=== PATIENT | male | born 1930 | race Two or more races ===

== ENCOUNTER 2017-08-06 14:44 | Inpatient (IN) | payer MEDICAID ==
[~2017-08-06] VITALS: Ht 170.2 cm; Wt 63.5 kg
[2017-08-06] MEDS ORDERED: NS 250 ML IV ONE (15:22)
[2017-08-06] MEDS ORDERED: BETIMOL5 M2 OP (15:29)
[2017-08-06] MEDS ORDERED: LUMIGAN2.5 ML BOTH EYES (15:29)
[2017-08-06] MEDS ORDERED: METFORMIN HCL500 M5 PO (15:29)
[2017-08-06] MEDS ORDERED: LISINOPRIL30 MG ORAL (15:29)
[2017-08-06] MEDS ORDERED: AMLODIPINE BES2.5 MG ORAL (15:29)
[2017-08-06] MEDS ORDERED: ATORVASTATIN CA40 MG ORAL (15:29)
[2017-08-06 15:40] VITALS: BP 155/73
--- NOTE | 2017-08-06 15:56 | Emergency Room Report ---
History of Present Illness General Chief Complaint: Chest Pain Source: Family Member Present Illness HPI 86-year-old male presents ED complaining of chest pain. Daughter at bedside. States that chest pain started this morning around 6 AM at rest. Sharp, 6 out of 10, left-sided, nonradiating. Last for approximate 5 minutes then resolved. Patient had another episode of chest pain around 1 PM. Also complaining of shortness of breath. States that [place]. 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 Denies slurred speech or facial droop. Denies any arm or leg weakness. No other aggravating relieving factors. Denies any other associated symptoms Allergies: Coded Allergies: No Known Allergies (Unverified , 08/06/17) Patient History Past Medical History: DM, HTN, CVA/TIA Past Surgical History: none Pertinent Family History: none Social History: Denies: smoking, alcohol use, drug use Immunizations: UTD Reviewed Nursing Documentation: PMH: Agreed; PSxH: Agreed Nursing Documentation-PMH Hx Hypertension: Yes Hx Diabetes: Yes Hx Cerebrovascular Accident: Yes Review of Systems All Other Systems: negative except mentioned in HPI Physical Exam Vital Signs Date Time Temp Pulse Resp B/P (MAP) Pulse Ox O2 Delivery O2 Flow Rate FiO2 08/06/17 15:16 98.3 79 17 165/78 98 Room Air 98.2 Sp02 EP Interpretation: reviewed, normal General Appearance: no apparent distress, alert, GCS 15, non-toxic Head: normocephalic, atraumatic Eyes: bilateral eye normal inspection, bilateral eye PERRL ENT: hearing grossly normal, normal pharynx, no angioedema, normal voice Neck: full range of motion, supple/symm/no masses Respiratory: chest non-tender, lungs clear, normal breath sounds, speaking full sentences Cardiovascular #1: regular rate, rhythm, no edema Cardiovascular #2: 2+ carotid (R), 2+ carotid (L), 2+ radial (R), 2+ radial (L) , 2+ dorsalis pedis (R), 2+ dorsalis pedis (L) Gastrointestinal: normal bowel sounds, non tender, soft, non-distended, no guarding, no rebound Rectal: deferred Genitourinary: normal inspection, no CVA tenderness Musculoskeletal: back normal, gait/station normal, normal range of motion, non- tender Neurologic: alert, oriented x3, responsive, motor strength/tone normal, sensory intact, speech normal Psychiatric: judgement/insight normal, memory normal, mood/affect normal, no suicidal/homicidal ideation Reflexes: 3+ bicep (R), 3+ bicep (L), 3+ tricep (R), 3+ tricep (L), 3+ knee (R) , 3+ knee (L) Skin: normal color, no rash, warm/dry, well hydrated Lymphatic: no adenopathy Medical Decision Making Diagnostic Impression: Primary Impression: ACS (acute coronary syndrome) ER Course Hospital Course 86-year-old male presents ED complaining of chest pain Differential diagnoses include: MN/unstable angina, contusion, muscle strain, PTX, rib fracture Clinical course Patient placed on stretcher. on cardiac cath lab technologist. After initial history and physical I ordered labs, EKG, chest x-ray labs reviewed- no leukocytosis, hb/hct stable, electrolytes ok, trop negative EKG - NSR, no aucet ischemic changes interpreted by me Chest x-ray- no acute process given aspirin Case discussed with Dr. Brewer and he agreed to accept the patient to his service for further care and support I. I feel this is a highly complex case requiring extensive working including EKG/Rhythm strip, Xray/CT/US, Blood/urine lab work, repeat exams while in ED, and administration of strong opiates/narcotics for pain control, admission to hospital or close patient follow up. Diagnosis - ACS admitted to telemetry in serious condition Labs Test 08/06/17 15:32 White Blood Count 4.9 K/UL (4.8-10.8) Red Blood Count 3.85 M/UL (4.70-6.10) Hemoglobin 12.6 G/DL (14.2-18.0) Hematocrit 35.4 % (42.0-52.0) Mean Corpuscular Volume 92 FL (80-99) Mean Corpuscular Hemoglobin 32.6 PG (27.0-31.0) Mean Corpuscular Hemoglobin Concent 35.5 G/DL (32.0-36.0) Red Cell Distribution Width 11.5 % (11.6-14.8) Platelet Count 241 K/UL (150-450) Mean Platelet Volume 7.6 FL (6.5-10.1) Neutrophils (%) (Auto) 47.3 % (45.0-75.0) Lymphocytes (%) (Auto) 34.3 % (20.0-45.0) Monocytes (%) (Auto) 10.4 % (1.0-10.0) Eosinophils (%) (Auto) 6.7 % (0.0-3.0) Basophils (%) (Auto) 1.3 % (0.0-2.0) Sodium Level 138 MMOL/L (136-145) Potassium Level 4.4 MMOL/L (3.5-5.1) Chloride Level 103 MMOL/L (98-107) Carbon Dioxide Level 29 MMOL/L (21-32) Anion Gap 6 mmol/L (5-15) Blood Urea Nitrogen 13 mg/dL (7-18) Creatinine 0.9 MG/DL (0.55-1.30) Estimat Glomerular Filtration Rate mL/min (>60) Glucose Level 200 MG/DL (74-106) Calcium Level 9.2 MG/DL (8.5-10.1) Total Bilirubin 0.5 MG/DL (0.2-1.0) Aspartate Amino Transf (AST/SGOT) 17 U/L (15-37) Alanine Aminotransferase (ALT/SGPT) 24 U/L (12-78) Alkaline Phosphatase 78 U/L (46-116) Total Creatine Kinase 29 U/L (26-308) Creatine Kinase MB < 0.5 NG/ML (0.0-3.6) Creatine Kinase MB Relative Index 1.7 Troponin I 0.000 ng/mL (0.000-0.056) Pro-B-Type Natriuretic Peptide 76 pg/mL (0-125) Total Protein 7.2 G/DL (6.4-8.2) Albumin 3.8 G/DL (3.4-5.0) Globulin 3.4 g/dL Albumin/Globulin Ratio 1.1 (1.0-2.7) EKG Diagnostic Results Rate: normal Rhythm: NSR ST Segments: no acute changes ASA given to the pt in ED: Yes Rhythm Strip Diag. Results EP Interpretation: yes Rhythm: NSR, no PVC's, no ectopy Chest X-Ray Diagnostic Results Chest X-Ray Diagnostic Results : Chest X-Ray Ordered: Yes # of Views/Limited/Complete: 1 View Indication: Chest Pain EP Interpretation: Yes Interpretation: no pneumothorax, other - minimal effusion to RLL base Impression: No acute disease Electronically Signed by: Electronically signed by Miguel Johnson MD Last Vital Signs Date Time Temp Pulse Resp B/P (MAP) Pulse Ox O2 Delivery O2 Flow Rate FiO2 08/06/17 15:16 98.3 79 17 165/78 98 Room Air 98.2 Status: improved Disposition: ADMITTED INPATIENT Condition: Serious Miguel Johnson MD Aug 06, 2017 15:56
--- NOTE | 2017-08-06 15:56 | Diagnostic Imaging Report ---
Indication: Chest pain Comparison: None A single view chest radiograph was obtained. Findings: No definite infiltrate or pulmonary vascular congestion identified. Minimal left basilar atelectasis noted. The heart is enlarged. The aorta is mildly enlarged consistent with atherosclerotic vascular disease. The bones are osteopenic. Impression: No acute disease
[2017-08-06 16:06] LABS: BASOPHILS % (AUTO) 1.3 % (0.0-2.0); EOSINOPHILS % (AUTO) 6.7 % (0.0-3.0); HEMATOCRIT 35.4 % (42.0-52.0); HEMOGLOBIN 12.6 G/DL (14.2-18.0); LYMPHOCYTES % (AUTO) 34.3 % (20.0-45.0); MEAN CORPUSCULAR VOLUME 92 FL (80-99); MONOCYTES % (AUTO) 10.4 % (1.0-10.0); NEUTROPHILS % (AUTO) 47.3 % (45.0-75.0); PLATELET COUNT 241 K/UL (150-450); RED BLOOD COUNT 3.85 M/UL (4.70-6.10); RED CELL DISTRIBUTION WIDTH 11.5 % (11.6-14.8); WHITE BLOOD COUNT 4.9 K/UL (4.8-10.8)
[2017-08-06 16:17] LABS: ANION GAP 6 mmol/L (5-15); BLOOD UREA NITROGEN 13 mg/dL (7-18); CALCIUM 9.2 MG/DL (8.5-10.1); CARBON DIOXIDE 29 MMOL/L (21-32); CHLORIDE 103 MMOL/L (98-107); CREATININE 0.9 MG/DL (0.55-1.30); POTASSIUM 4.4 MMOL/L (3.5-5.1); SODIUM 138 MMOL/L (136-145)
[2017-08-06 16:31] LABS: ALANINE AMINOTRANSFERASE 24 U/L (12-78); ALBUMIN 3.8 G/DL (3.4-5.0); ALBUMIN/GLOBULIN RATIO 1.1 (1.0-2.7); ALKALINE PHOSPHATASE 78 U/L (46-116); ASPARTATE AMINO TRANSFERASE 17 U/L (15-37); BILIRUBIN,TOTAL 0.5 MG/DL (0.2-1.0); CKMB < 0.5 NG/ML (0.0-3.6); CREATINE KINASE 29 U/L (26-308)
[2017-08-06] MEDS ORDERED: Mylanta II UD 30ml ORAL PRN (16:45)
[2017-08-06] MEDS ORDERED: traMADol 50mg tab ORAL PRN (16:45)
[2017-08-06] MEDS ORDERED: Miralax 17gm pkt ORAL PRN (16:45)
[2017-08-06] MEDS ORDERED: Nitroglycerin Subl 0.4mg tab SL PRN (16:45)
[2017-08-06 17:00] VITALS: BP 147/77
[2017-08-06 18:20] VITALS: BP 153/80
[2017-08-06] MEDS ORDERED: Albuterol/Ipratropium 3ml neb HHN PRN (18:58)
[2017-08-06 20:00] VITALS: BP 168/78
[2017-08-06] MEDS: NovoLOG Insulin Flexpen SUBQ SCH ×2 (21:00→21:25)
[2017-08-06] MEDS: Heparin 5000 units/ml inj SUBQ SCH (21:00)
[2017-08-06] MEDS: Docusate 100mg cap ORAL SCH ×2 (21:00→21:22)
[2017-08-06] MEDS: Atorvastatin 20mg tab ORAL SCH (21:23)
[2017-08-06] MEDS: Latanoprost 0.005% Opth 2.5ml Soln BOTH EYES SCH (21:24)
[2017-08-06] MEDS: Timolol 0.5% Op Soln 2.5ml BOTH EYES SCH (21:24)
[2017-08-07] VITALS: BP 146/79
[2017-08-07 04:00] VITALS: BP 123/64
[2017-08-07 05:21] LABS: BASOPHILS % (AUTO) 1.2 % (0.0-2.0); EOSINOPHILS % (AUTO) 7.9 % (0.0-3.0); HEMATOCRIT 36.2 % (42.0-52.0); HEMOGLOBIN 12.8 G/DL (14.2-18.0); LYMPHOCYTES % (AUTO) 37.6 % (20.0-45.0); MEAN CORPUSCULAR VOLUME 91 FL (80-99); MONOCYTES % (AUTO) 9.4 % (1.0-10.0); PLATELET COUNT 260 K/UL (150-450); RED BLOOD COUNT 3.97 M/UL (4.70-6.10); RED CELL DISTRIBUTION WIDTH 11.3 % (11.6-14.8); WHITE BLOOD COUNT 5.2 K/UL (4.8-10.8)
[2017-08-07 05:27] LABS: ANION GAP 5 mmol/L (5-15); BLOOD UREA NITROGEN 9 mg/dL (7-18); CALCIUM 8.9 MG/DL (8.5-10.1); CARBON DIOXIDE 31 MMOL/L (21-32); CHLORIDE 105 MMOL/L (98-107); CHOLESTEROL 90 MG/DL (< 200); CREATININE 0.9 MG/DL (0.55-1.30); HDL CHOLESTEROL 46 MG/DL (40-60); POTASSIUM 3.7 MMOL/L (3.5-5.1); SODIUM 141 MMOL/L (136-145); TRIGLYCERIDES 32 MG/DL (30-150)
[2017-08-07] MEDS: NovoLOG Insulin Flexpen SUBQ SCH ×4 (06:30→20:32)
[2017-08-07 08:00] VITALS: BP 135/68
[2017-08-07] MEDS: Heparin 5000 units/ml inj SUBQ SCH ×2 (09:00→20:31)
[2017-08-07] MEDS ORDERED: Lexiscan 0.4mg/5ml syringe IV PRN (10:00)
--- NOTE | 2017-08-07 10:00 | Cardiac Electrophysiology PN ---
Subjective Subjective [id number] Objective Last 24 Hour Vital Signs Date Time Temp Pulse Resp B/P (MAP) Pulse Ox O2 Delivery O2 Flow Rate FiO2 08/07/17 08:00 97.7 78 18 135/68 97 Room Air 97.7 08/07/17 04:00 97.9 70 20 123/64 97 Room Air 97.9 08/07/17 03:27 75 08/07/17 00:00 98.1 74 20 146/79 97 Room Air 98.1 08/06/17 23:44 73 08/06/17 21:24 84 168/78 08/06/17 20:00 97.3 84 20 168/78 96 Room Air 97.3 08/06/17 19:44 81 08/06/17 18:20 97.4 80 18 153/80 96 Room Air 97.4 08/06/17 18:10 98.2 79 16 142/78 97 Room Air 08/06/17 17:00 98.3 70 16 147/77 100 Room Air 98.3 08/06/17 15:40 75 14 Room Air 08/06/17 15:40 98.0 76 14 155/73 98 Room Air 98.0 08/06/17 15:16 98.3 79 17 165/78 98 Room Air 98.2 Intake and Output 08/06/17 08/07/17 19:00 07:00 Intake Total 250 ml Balance 250 ml Intake IV Total 250 ml # Voids 1 # Bowel Movements 1 Laboratory Tests Test 08/06/17 15:32 08/06/17 21:20 08/07/17 03:20 White Blood Count 4.9 K/UL (4.8-10.8) 5.2 K/UL (4.8-10.8) Red Blood Count 3.85 M/UL (4.70-6.10) L 3.97 M/UL (4.70-6.10) L Hemoglobin 12.6 G/DL (14.2-18.0) L 12.8 G/DL (14.2-18.0) L Hematocrit 35.4 % (42.0-52.0) L 36.2 % (42.0-52.0) L Mean Corpuscular Volume 92 FL (80-99) 91 FL (80-99) Mean Corpuscular Hemoglobin 32.6 PG (27.0-31.0) H 32.3 PG (27.0-31.0) H Mean Corpuscular Hemoglobin Concent 35.5 G/DL (32.0-36.0) 35.5 G/DL (32.0-36.0) Red Cell Distribution Width 11.5 % (11.6-14.8) L 11.3 % (11.6-14.8) L Platelet Count 241 K/UL (150-450) 260 K/UL (150-450) Mean Platelet Volume 7.6 FL (6.5-10.1) 7.6 FL (6.5-10.1) Neutrophils (%) (Auto) 47.3 % (45.0-75.0) 44.0 % (45.0-75.0) L Lymphocytes (%) (Auto) 34.3 % (20.0-45.0) 37.6 % (20.0-45.0) Monocytes (%) (Auto) 10.4 % (1.0-10.0) H 9.4 % (1.0-10.0) Eosinophils (%) (Auto) 6.7 % (0.0-3.0) H 7.9 % (0.0-3.0) H Basophils (%) (Auto) 1.3 % (0.0-2.0) 1.2 % (0.0-2.0) Sodium Level 138 MMOL/L (136-145) 141 MMOL/L (136-145) Potassium Level 4.4 MMOL/L (3.5-5.1) 3.7 MMOL/L (3.5-5.1) Chloride Level 103 MMOL/L (98-107) 105 MMOL/L (98-107) Carbon Dioxide Level 29 MMOL/L (21-32) 31 MMOL/L (21-32) Anion Gap 6 mmol/L (5-15) 5 mmol/L (5-15) Blood Urea Nitrogen 13 mg/dL (7-18) 9 mg/dL (7-18) Creatinine 0.9 MG/DL (0.55-1.30) 0.9 MG/DL (0.55-1.30) Estimat Glomerular Filtration Rate mL/min (>60) mL/min (>60) Glucose Level 200 MG/DL (74-106) H 101 MG/DL (74-106) # Calcium Level 9.2 MG/DL (8.5-10.1) 8.9 MG/DL (8.5-10.1) Total Bilirubin 0.5 MG/DL (0.2-1.0) Aspartate Amino Transf (AST/SGOT) 17 U/L (15-37) Alanine Aminotransferase (ALT/SGPT) 24 U/L (12-78) Alkaline Phosphatase 78 U/L (46-116) Total Creatine Kinase 29 U/L (26-308) Creatine Kinase MB < 0.5 NG/ML (0.0-3.6) Creatine Kinase MB Relative Index 1.7 Troponin I 0.000 ng/mL (0.000-0.056) 0.000 ng/mL (0.000-0.056) 0.002 ng/mL (0.000-0.056) Pro-B-Type Natriuretic Peptide 76 pg/mL (0-125) Total Protein 7.2 G/DL (6.4-8.2) Albumin 3.8 G/DL (3.4-5.0) Globulin 3.4 g/dL Albumin/Globulin Ratio 1.1 (1.0-2.7) Hemoglobin A1c 6.7 % (4.3-6.0) H Magnesium Level 1.5 MG/DL (1.8-2.4) L Triglycerides Level 32 MG/DL (30-150) Cholesterol Level 90 MG/DL (< 200) LDL Cholesterol 38 mg/dL (<100) HDL Cholesterol 46 MG/DL (40-60) Cholesterol/HDL Ratio 2.0 (3.3-4.4) L Thyroid Stimulating Hormone (TSH) 3.361 uiU/mL (0.358-3.740) Anders Danielson MD Aug 07, 2017 09:59
[2017-08-07] MEDS: Lisinopril 20mg tab ORAL SCH (10:07)
[2017-08-07] MEDS: Timolol 0.5% Op Soln 2.5ml BOTH EYES SCH ×2 (10:08→18:13)
[2017-08-07] MEDS: Aspirin Baby 81mg ORAL SCH (10:08)
[2017-08-07 12:00] VITALS: BP 144/78
[2017-08-07 16:00] VITALS: BP 144/73
--- NOTE | 2017-08-07 18:45 | History and Physical ---
History of Present Illness General Date patient seen: Aug 07, 2017 Reason for Hospitalization: Chest Pain Present Illness HPI 86 y/o male with a PMH of DM, HTN, and CVA presented with chest pain since this morning. Patient states that chest pain started at 5am this morning that was left sided radiating to the left shoulder and left rib area. Patient states that it lasted for 5 minutes with no associated nausea, vomiting, or sob. In the ER, patient was given ASA 325mg x 1. EKG showed NSR and trops x 3 were negative. CXR was also negative. Patient was transferred to [facility] and further monitored. Denies fevers, chills, abdominal pain, flank pain, dysuria. Currently also denies chest pain or shortness of breath. Allergies: Coded Allergies: No Known Allergies (Unverified , 08/06/17) Medication History Scheduled Amlodipine Besylate* (Amlodipine Besylate*), 2.5 MG ORAL BEDTIME, (Reported) Atorvastatin Calcium* (Atorvastatin Calcium*), 40 MG ORAL BEDTIME, (Reported) Bimatoprost (Lumigan), 1 DROP BOTH EYES DAILY, (Reported) Lisinopril* (Lisinopril*), 30 MG ORAL DAILY, (Reported) Metformin HCl (Metformin HCl ER), 500 MG PO BID, (Reported) Timolol (Betimol), 2.5 ML OP BID, (Reported) Patient History History Provided By: Patient, Family Member Healthcare decision maker Resuscitation status Full Code Advanced Directive on File No Review of Systems Constitutional: Reports: no symptoms Eye: Reports: no symptoms ENT: Reports: no symptoms Respiratory: Reports: no symptoms Cardiovascular: Reports: no symptoms Gastrointestinal: Reports: no symptoms Genitourinary: Reports: no symptoms Musculoskeletal: Reports: no symptoms Skin: Reports: no symptoms Psychiatric: Reports: no symptoms Neurological: Reports: no symptoms Endocrine: Reports: no symptoms Hematologic/Lymphatic: Reports: no symptoms All Other Systems: negative except mentioned in HPI Physical Exam General Appearance: no apparent distress, alert HEENT: normocephalic, atraumatic, anicteric Neck: non-tender, normal alignment, supple Respiratory/Chest: chest wall non-tender, lungs clear, normal breath sounds Cardiovascular/Chest: normal peripheral pulses, normal rate, regular rhythm Abdomen: normal bowel sounds, non tender, soft Extremities: normal range of motion, non-tender Skin Exam: normal pigmentation, warm/dry 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 normal, no motor/sensory deficits, alert, oriented x 3 Last 24 Hour Vital Signs Date Time Temp Pulse Resp B/P (MAP) Pulse Ox O2 Delivery O2 Flow Rate FiO2 08/07/17 16:00 71 08/07/17 12:00 67 08/07/17 12:00 98.2 78 19 144/78 96 Room Air 98.2 08/07/17 10:07 135/68 08/07/17 08:00 74 08/07/17 08:00 97.7 78 18 135/68 97 Room Air 97.7 08/07/17 04:00 97.9 70 20 123/64 97 Room Air 97.9 08/07/17 03:27 75 08/07/17 00:00 98.1 74 20 146/79 97 Room Air 98.1 08/06/17 23:44 73 08/06/17 21:24 84 168/78 08/06/17 20:00 97.3 84 20 168/78 96 Room Air 97.3 08/06/17 19:44 81 Intake and Output 08/06/17 08/07/17 19:00 07:00 Intake Total 250 ml Balance 250 ml Intake IV Total 250 ml # Voids 1 # Bowel Movements 1 Laboratory Tests Test 08/06/17 21:20 08/07/17 03:20 Troponin I 0.000 ng/mL (0.000-0.056) 0.002 ng/mL (0.000-0.056) White Blood Count 5.2 K/UL (4.8-10.8) Red Blood Count 3.97 M/UL (4.70-6.10) L Hemoglobin 12.8 G/DL (14.2-18.0) L Hematocrit 36.2 % (42.0-52.0) L Mean Corpuscular Volume 91 FL (80-99) Mean Corpuscular Hemoglobin 32.3 PG (27.0-31.0) H Mean Corpuscular Hemoglobin Concent 35.5 G/DL (32.0-36.0) Red Cell Distribution Width 11.3 % (11.6-14.8) L Platelet Count 260 K/UL (150-450) Mean Platelet Volume 7.6 FL (6.5-10.1) Neutrophils (%) (Auto) 44.0 % (45.0-75.0) L Lymphocytes (%) (Auto) 37.6 % (20.0-45.0) Monocytes (%) (Auto) 9.4 % (1.0-10.0) Eosinophils (%) (Auto) 7.9 % (0.0-3.0) H Basophils (%) (Auto) 1.2 % (0.0-2.0) Sodium Level 141 MMOL/L (136-145) Potassium Level 3.7 MMOL/L (3.5-5.1) Chloride Level 105 MMOL/L (98-107) Carbon Dioxide Level 31 MMOL/L (21-32) Anion Gap 5 mmol/L (5-15) Blood Urea Nitrogen 9 mg/dL (7-18) Creatinine 0.9 MG/DL (0.55-1.30) Estimat Glomerular Filtration Rate mL/min (>60) Glucose Level 101 MG/DL (74-106) # Hemoglobin A1c 6.7 % (4.3-6.0) H Calcium Level 8.9 MG/DL (8.5-10.1) Magnesium Level 1.5 MG/DL (1.8-2.4) L Triglycerides Level 32 MG/DL (30-150) Cholesterol Level 90 MG/DL (< 200) LDL Cholesterol 38 mg/dL (<100) HDL Cholesterol 46 MG/DL (40-60) Cholesterol/HDL Ratio 2.0 (3.3-4.4) L Thyroid Stimulating Hormone (TSH) 3.361 uiU/mL (0.358-3.740) Height (Feet): 5 Height (Inches): 7.00 Weight (Pounds): 140 Medications Current Medications Medications (Trade) Dose Ordered Sig/Karime Route PRN Reason Start Time Stop Time Status Last Admin Dose Admin Acetaminophen (Tylenol) 650 mg Q4H PRN ORAL Mild Pain (Pain Scale 1-3) 08/06/17 16:45 09/05/17 16:44 Acetaminophen (Tylenol) 650 mg Q4H PRN ORAL fever 08/06/17 16:45 09/05/17 16:44 Al Hydroxide/Mg Hydroxide (Mylanta II) 30 ml Q6H PRN ORAL dyspepsia 08/06/17 16:45 09/05/17 16:44 Albuterol/ Ipratropium (Albuterol/ Ipratropium) 3 ml Q4H PRN HHN Shortness of Breath 08/06/17 18:58 08/11/17 18:57 Amlodipine Besylate (Norvasc) 2.5 mg BEDTIME ORAL 08/06/17 21:00 09/05/17 20:59 08/06/17 21:24 Aspirin (ASA) 81 mg DAILY ORAL 08/07/17 09:00 09/06/17 08:59 08/07/17 10:08 Atorvastatin Calcium (Lipitor) 40 mg BEDTIME ORAL 08/06/17 21:00 09/05/17 20:59 08/06/17 21:23 Bisacodyl (Dulcolax) 10 mg DAILYPRN PRN RECTAL Constipation 08/06/17 16:45 09/05/17 16:44 Dextrose (Dextrose 50%) 25 ml STAT PRN IV BS 60-69mg/dl 08/06/17 18:55 09/05/17 18:54 Dextrose (Dextrose 50%) 50 ml STAT PRN IV BS less than 60mg/dl 08/06/17 16:45 09/05/17 16:44 Docusate Sodium (Colace) 100 mg EVERY 12 HOURS ORAL 08/06/17 21:00 09/05/17 20:59 Famotidine (Pepcid I.v.) 20 mg Q12HR IVP 08/06/17 21:00 09/05/17 20:59 Heparin Sodium (Porcine) (Heparin 5000 units/ml) 5,000 units EVERY 12 HOURS SUBQ 08/06/17 21:00 09/05/17 20:59 Insulin Aspart (NovoLOG) BEFORE MEALS AND HS SUBQ 08/06/17 21:00 09/05/17 20:59 Latanoprost (Xalatan) 1 drop BEDTIME BOTH EYES 08/06/17 21:00 09/05/17 20:59 08/06/17 21:24 Lisinopril (Prinivil) 30 mg DAILY ORAL 08/07/17 09:00 09/06/17 08:59 08/07/17 10:07 Magnesium Sulfate 100 ml @ 100 mls/hr ONCE ONCE IVPB 08/07/17 18:00 08/07/17 18:59 08/07/17 18:13 Nitroglycerin (Ntg) 0.4 mg Q5M PRN SL Prn Chest Pain 08/06/17 16:45 09/05/17 16:44 Ondansetron HCl (Zofran) 4 mg Q6H PRN IVP Nausea & Vomiting 08/06/17 16:45 09/05/17 16:44 Polyethylene Glycol (Miralax) 17 gm DAILYPRN PRN ORAL Constipation (1ST LINE) 08/06/17 16:45 09/05/17 16:44 Regadenoson (Lexiscan) 0.4 mg ONCE PRN IV stress test 08/07/17 10:00 08/07/17 23:59 Timolol Maleate (Timoptic 0.5% Op Soln) 1 drop TWICE A DAY BOTH EYES 08/06/17 21:00 09/05/17 20:59 08/07/17 18:13 Tramadol HCl (Ultram) 50 mg Q4HR PRN ORAL moderate to severe pain 08/06/17 16:45 08/13/17 16:44 Assessment/Plan Problem List: (1) Chest pain ICD Codes: R07.9 - Chest pain, unspecified SNOMED: 73917776 (2) Type 2 diabetes mellitus ICD Codes: E11.9 - Type 2 diabetes mellitus without complications SNOMED: 57161799 (3) Hypomagnesemia ICD Codes: E83.42 - Hypomagnesemia SNOMED: 495799150 (4) HLD (hyperlipidemia) ICD Codes: E78.5 - Hyperlipidemia, unspecified SNOMED: 24894722 (5) H/O: CVA (cerebrovascular accident) ICD Codes: Z86.73 - Personal history of transient ischemic attack (TIA), and cerebral infarction without residual deficits SNOMED: 887454726 (6) HTN (hypertension) ICD Codes: I10 - Essential (primary) hypertension SNOMED: 01771397 Status: stable Assessment/Plan - Admit to tele - Cardiology consulted - EKG NSR. trops x 3 negative. CXR negative. ACS likely ruled out - ECHO showing 65% EF, mild aortic stenosis, mild to mod mitral regurg, mild LV diastolic dysfunction, mild tricuspid regurg - nuclear stress test in AM to rule out ischemia - replete lytes prn - A1c 6.7 - LDL 38, HDL 46, TG 32 - continue home meds, including BP meds. Continue statin and ASA. hold metformin - sliding scale insulin DVT ppx: HSQ Once the patient is medically stable, I anticipate the patient to be discharged to: home Total time spent: 70 min More than 50% of the time was allotted to care and coordination. 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 Oneida Schafer N.P. Aug 07, 2017 18:44
--- NOTE | 2017-08-07 18:45 | Consultation ---
DATE OF CONSULTATION: 08/07/2017 CARDIOLOGY CONSULTATION CONSULTING PHYSICIAN: Anders Danielson M.D. REFERRING PHYSICIANS: 1. Thaddeus Barrios M.D. 2. Marie Claire M.D. REASON FOR CONSULTATION: Chest pain. HISTORY OF PRESENT ILLNESS: The patient is an 86-year-old, gentleman with history of hypertension, diabetes, and history of prior CVA with left-sided weakness, presented to the emergency room complaining of left-sided chest pain with radiation to the left side of his abdomen. The pain started around 6 o'clock in the morning yesterday and it happened at rest. It lasted about 5 minutes and subsequently was resolved. The patient denies prior myocardial infarction or coronary artery disease or prior stent placement. The patient was also complaining of shortness of breath. 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 [place] REVIEW OF SYSTEMS: His review of systems was thoroughly performed and was negative other than what was mentioned in the history of present illness. PAST MEDICAL HISTORY: 1. Hypertension. 2. History of diabetes. 3. CVA. FAMILY HISTORY: Noncontributory. SOCIAL HISTORY: He lives at home with family. Does not smoke or drink alcohol. PHYSICAL EXAMINATION: VITAL SIGNS: Blood pressure of 135/68, pulse 78, respirations 18, and temperature 97.7 degrees. HEAD AND NECK: No JVD or carotid bruits. LUNGS: Clear. CARDIOVASCULAR: Regular S1 and S2 with no gallop or murmurs. ABDOMEN: Soft and nontender. EXTREMITIES: No pitting edema. NEUROLOGIC: He has left-sided weakness. LABORATORY AND DIAGNOSTIC DATA: His EKG showed normal sinus rhythm, normal electrocardiogram. Labs show white count of 5.2, hemoglobin 12.8, hematocrit 36.2, and platelet count 260. Sodium 141, potassium 3.7, BUN of 9, creatinine 0.9, and glucose of 101. Troponin is negative x3. ASSESSMENT AND PLAN: 1. Atypical chest pain. His EKG is completely normal and is already ruled out for myocardial infarction. He is scheduled for nuclear stress test for further evaluation and we will get an echocardiogram as well. Continue the patient on aspirin and Lipitor. 2. Hypertension. Blood pressure stable on lisinopril 30 mg daily. The patient also on Norvasc 2.5 mg at bedtime. 3. Hyperlipidemia, on Lipitor. 4. History of cerebrovascular accident with left-sided weakness. Thank you very much, Dr. Salazar and Dr. Barrios, for allowing me to participate in the care of this patient. Please do not hesitate to contact me for any questions regarding my evaluation. Anders Danielson M.D. DR: JUNE JOB#: [id number] CC:
[2017-08-07 20:00] VITALS: BP 148/76
[2017-08-07] MEDS: Latanoprost 0.005% Opth 2.5ml Soln BOTH EYES SCH (20:28)
[2017-08-07] MEDS: Atorvastatin 20mg tab ORAL SCH (20:29)
[2017-08-08] VITALS: BP 154/78
[2017-08-08 04:00] VITALS: BP 136/63
[2017-08-08] MEDS: NovoLOG Insulin Flexpen SUBQ SCH ×4 (06:15→20:55)
[2017-08-08 08:00] VITALS: BP 134/69
[2017-08-08 08:14] LABS: BASOPHILS % (AUTO) 1.5 % (0.0-2.0); EOSINOPHILS % (AUTO) 6.6 % (0.0-3.0); HEMATOCRIT 37.4 % (42.0-52.0); HEMOGLOBIN 13.2 G/DL (14.2-18.0); LYMPHOCYTES % (AUTO) 36.3 % (20.0-45.0); MEAN CORPUSCULAR VOLUME 91 FL (80-99); MONOCYTES % (AUTO) 9.7 % (1.0-10.0); NEUTROPHILS % (AUTO) 45.9 % (45.0-75.0); PLATELET COUNT 246 K/UL (150-450); RED BLOOD COUNT 4.11 M/UL (4.70-6.10); RED CELL DISTRIBUTION WIDTH 11.5 % (11.6-14.8); WHITE BLOOD COUNT 5.3 K/UL (4.8-10.8)
[2017-08-08] MEDS: Lisinopril 20mg tab ORAL SCH (08:20)
[2017-08-08] MEDS: Aspirin Baby 81mg ORAL SCH (08:21)
[2017-08-08] MEDS: Timolol 0.5% Op Soln 2.5ml BOTH EYES SCH ×2 (08:34→14:26)
[2017-08-08] MEDS: Docusate 100mg cap ORAL SCH ×2 (08:35→20:33)
[2017-08-08] MEDS: Heparin 5000 units/ml inj SUBQ SCH ×2 (08:35→20:33)
[2017-08-08 08:38] LABS: ANION GAP 7 mmol/L (5-15); BLOOD UREA NITROGEN 10 mg/dL (7-18); CALCIUM 8.7 MG/DL (8.5-10.1); CARBON DIOXIDE 29 MMOL/L (21-32); CHLORIDE 105 MMOL/L (98-107); POTASSIUM 3.7 MMOL/L (3.5-5.1); SODIUM 141 MMOL/L (136-145)
[2017-08-08] MEDS ORDERED: Tubing IV Secondary IV ONE (10:22)
[2017-08-08] MEDS ORDERED: NS 275ml ONE (10:22)
[2017-08-08 12:00] VITALS: BP 131/70
[2017-08-08] MEDS ORDERED: Lexiscan 0.4mg/5ml syringe IV PRN (13:30)
--- NOTE | 2017-08-08 14:59 | Cardiac Electrophysiology PN ---
Assessment/Plan Assessment/Plan 1. Atypical chest pain. His EKG is completely normal and is already ruled out for myocardial infarction. Had nuclear stress test and results are pending. Echocardiogram EF 65% Continue the patient on aspirin and Lipitor. 2. Hypertension. Blood pressure stable on lisinopril 30 mg daily. The patient also on Norvasc 2.5 mg at bedtime. 3. Hyperlipidemia, on Lipitor. 4. History of cerebrovascular accident with left-sided weakness. ANNABEL RN Subjective Subjective Had Lexiscan cardiolite. No chest pain. Objective Last 24 Hour Vital Signs Date Time Temp Pulse Resp B/P (MAP) Pulse Ox O2 Delivery O2 Flow Rate FiO2 08/08/17 12:00 98.1 74 18 131/70 98 Room Air 98.1 08/08/17 12:00 68 08/08/17 08:20 134/69 08/08/17 08:00 97.2 75 19 134/69 96 Room Air 97.2 08/08/17 08:00 75 08/08/17 04:00 97.7 72 20 136/63 96 Room Air 97.7 08/08/17 04:00 69 08/08/17 00:00 97.7 72 20 154/78 98 Room Air 97.7 08/08/17 00:00 69 08/07/17 20:29 97 148/76 08/07/17 20:00 98.1 70 20 148/76 97 Room Air 98.1 08/07/17 20:00 66 08/07/17 16:00 71 08/07/17 16:00 95.9 96 20 144/73 96 Room Air 95.9 Intake and Output 08/07/17 08/08/17 19:00 07:00 # Voids 2 # Bowel Movements 1 1 Laboratory Tests Test 08/08/17 04:30 White Blood Count 5.3 K/UL (4.8-10.8) Red Blood Count 4.11 M/UL (4.70-6.10) L Hemoglobin 13.2 G/DL (14.2-18.0) L Hematocrit 37.4 % (42.0-52.0) L Mean Corpuscular Volume 91 FL (80-99) Mean Corpuscular Hemoglobin 32.2 PG (27.0-31.0) H Mean Corpuscular Hemoglobin Concent 35.4 G/DL (32.0-36.0) Red Cell Distribution Width 11.5 % (11.6-14.8) L Platelet Count 246 K/UL (150-450) Mean Platelet Volume 7.6 FL (6.5-10.1) Neutrophils (%) (Auto) 45.9 % (45.0-75.0) Lymphocytes (%) (Auto) 36.3 % (20.0-45.0) Monocytes (%) (Auto) 9.7 % (1.0-10.0) Eosinophils (%) (Auto) 6.6 % (0.0-3.0) H Basophils (%) (Auto) 1.5 % (0.0-2.0) Sodium Level 141 MMOL/L (136-145) Potassium Level 3.7 MMOL/L (3.5-5.1) Chloride Level 105 MMOL/L (98-107) Carbon Dioxide Level 29 MMOL/L (21-32) Anion Gap 7 mmol/L (5-15) Blood Urea Nitrogen 10 mg/dL (7-18) Creatinine 1.0 MG/DL (0.55-1.30) Estimat Glomerular Filtration Rate mL/min (>60) Glucose Level 126 MG/DL (74-106) H Calcium Level 8.7 MG/DL (8.5-10.1) Objective HEAD AND NECK: No JVD or carotid bruits. LUNGS: Clear. CARDIOVASCULAR: Regular S1 and S2 with no gallop or murmurs. ABDOMEN: Soft and nontender. EXTREMITIES: No pitting edema. NEUROLOGIC: He has left-sided weakness. Anders Danielson MD Aug 08, 2017 14:59
[2017-08-08 16:00] VITALS: BP 133/69
--- NOTE | 2017-08-08 17:08 | Diagnostic Imaging Report ---
Indications: Chest pain Technique: 2-D single isotope protocol utilized. Initially, resting images obtained using IV administration 29.6 millicuries 99M technetium Myoview. Subsequently, patient underwent lexiscan stress testing. See cardiology report for details. During adenosine infusion, IV administration 30.2 mCi 99 M technetium Myoview. SPECT and planar images obtained. SPECT images gated to 8 phases of the cardiac cycle were also obtained, and reformatted into cine images for evaluation of ejection fraction. Comparison: none Findings: Presence or absence of symptoms during infusion is not described on the cardiology report. Per cardiology report, resting EKG demonstrates normal sinus rhythm. Presence or absence of EKG changes during infusion is not described on the cardiology report. Imaging demonstrates normal post-rest perfusion, no fixed nor reversible perfusion defects. Calculated post stress ejection fraction 81%. No focal wall motion abnormality. Normal cardiac chamber size Impression: Nonischemic clinical response to pharmacologic stress, per cardiology report Nonischemic electrocardiographic response to pharmacologic stress, per cardiology report No imaging findings to suggest ischemia, at level of stress achieved. Calculated post stress ejection fraction greater than 70%
[2017-08-08 20:00] VITALS: BP 127/66
[2017-08-08] MEDS: Atorvastatin 20mg tab ORAL SCH (20:31)
[2017-08-08] MEDS: Latanoprost 0.005% Opth 2.5ml Soln BOTH EYES SCH (20:32)
--- NOTE | 2017-08-08 23:02 | General Progress Note ---
Assessment/Plan Problem List: (1) Chest pain ICD Codes: R07.9 - Chest pain, unspecified SNOMED: 82848951 (2) Type 2 diabetes mellitus ICD Codes: E11.9 - Type 2 diabetes mellitus without complications SNOMED: 38203261 (3) Hypomagnesemia ICD Codes: E83.42 - Hypomagnesemia SNOMED: 890725011 (4) HLD (hyperlipidemia) ICD Codes: E78.5 - Hyperlipidemia, unspecified SNOMED: 52066804 (5) H/O: CVA (cerebrovascular accident) ICD Codes: Z86.73 - Personal history of transient ischemic attack (TIA), and cerebral infarction without residual deficits SNOMED: 650260852 (6) HTN (hypertension) ICD Codes: I10 - Essential (primary) hypertension SNOMED: 82201453 Status: stable Assessment/Plan - Cardiology consulted, appreciate rec's - EKG NSR. trops x 3 negative. CXR negative. ACS ruled out - ECHO showing 65% EF, mild aortic stenosis, mild to mod mitral regurg, mild LV diastolic dysfunction, mild tricuspid regurg - nuclear stress test today to rule out ischemia - replete lytes prn - A1c 6.7 - LDL 38, HDL 46, TG 32 - continue home meds, including BP meds. Continue statin and ASA. hold metformin - sliding scale insulin - Possibly dispo in AM after stress test results DVT Prophylaxis: SCD, HSQ Code Status: Full Hospital Classification Declaration: Based on this initial evaluation, and depending on the patient's clinical course, I anticipate that this patient will require hospitalization for 1-2 days for chest pain, pain control, and close respiratory/hemodynamic monitoring. Disposition: Once the patient is stable to leave the hospital, I anticipate the patient will likely be discharged to the following environment: home with I spent 71 minutes on this patient's case, and >50% was dedicated to counseling and/or care coordination. Discussed with patient/family, nursing staff, and control tower operator regarding clinical status, treatment course, and disposition planning. Time of note may not reflect time of encounter. Subjective Date patient seen: Aug 08, 2017 Time patient seen: 12:22 Allergies: Coded Allergies: No Known Allergies (Unverified , 08/06/17) Subjective - patient refusing his medications today per RN - denies chest pain today. denies sob, n/v, abdominal pain - scheduled for stress test Objective Last 24 Hour Vital Signs Date Time Temp Pulse Resp B/P (MAP) Pulse Ox O2 Delivery O2 Flow Rate FiO2 08/08/17 20:32 69 119/59 08/08/17 20:00 97.3 75 20 127/66 97 Room Air 97.3 08/08/17 20:00 71 08/08/17 16:00 73 08/08/17 16:00 97.9 73 18 133/69 96 Room Air 97.9 08/08/17 12:00 98.1 74 18 131/70 98 Room Air 98.1 08/08/17 12:00 68 08/08/17 08:20 134/69 08/08/17 08:00 97.2 75 19 134/69 96 Room Air 97.2 08/08/17 08:00 75 08/08/17 04:00 97.7 72 20 136/63 96 Room Air 97.7 08/08/17 04:00 69 08/08/17 00:00 97.7 72 20 154/78 98 Room Air 97.7 08/08/17 00:00 69 Intake and Output 08/07/17 08/08/17 19:00 07:00 # Voids 2 # Bowel Movements 1 1 Laboratory Tests Test 08/08/17 04:30 White Blood Count 5.3 K/UL (4.8-10.8) Red Blood Count 4.11 M/UL (4.70-6.10) L Hemoglobin 13.2 G/DL (14.2-18.0) L Hematocrit 37.4 % (42.0-52.0) L Mean Corpuscular Volume 91 FL (80-99) Mean Corpuscular Hemoglobin 32.2 PG (27.0-31.0) H Mean Corpuscular Hemoglobin Concent 35.4 G/DL (32.0-36.0) Red Cell Distribution Width 11.5 % (11.6-14.8) L Platelet Count 246 K/UL (150-450) Mean Platelet Volume 7.6 FL (6.5-10.1) Neutrophils (%) (Auto) 45.9 % (45.0-75.0) Lymphocytes (%) (Auto) 36.3 % (20.0-45.0) Monocytes (%) (Auto) 9.7 % (1.0-10.0) Eosinophils (%) (Auto) 6.6 % (0.0-3.0) H Basophils (%) (Auto) 1.5 % (0.0-2.0) Sodium Level 141 MMOL/L (136-145) Potassium Level 3.7 MMOL/L (3.5-5.1) Chloride Level 105 MMOL/L (98-107) Carbon Dioxide Level 29 MMOL/L (21-32) Anion Gap 7 mmol/L (5-15) Blood Urea Nitrogen 10 mg/dL (7-18) Creatinine 1.0 MG/DL (0.55-1.30) Estimat Glomerular Filtration Rate mL/min (>60) Glucose Level 126 MG/DL (74-106) H Calcium Level 8.7 MG/DL (8.5-10.1) Laboratory Tests 08/08/17 04:30: White Blood Count 5.3, Red Blood Count 4.11L, Hemoglobin 13.2L, Hematocrit 37.4L , Mean Corpuscular Volume 91, Mean Corpuscular Hemoglobin 32.2H, Mean Corpuscular Hemoglobin Concent 35.4, Red Cell Distribution Width 11.5L, Platelet Count 246, Mean Platelet Volume 7.6, Neutrophils (%) (Auto) 45.9, Lymphocytes (%) (Auto) 36.3, Monocytes (%) (Auto) 9.7, Eosinophils (%) (Auto) 6.6H, Basophils (%) (Auto) 1.5, Sodium Level 141, Potassium Level 3.7, Chloride Level 105, Carbon Dioxide Level 29, Anion Gap 7, Blood Urea Nitrogen 10, Creatinine 1.0, Estimat Glomerular Filtration Rate , Glucose Level 126H, Calcium Level 8.7 Height (Feet): 5 Height (Inches): 7.00 Weight (Pounds): 140 General Appearance: no apparent distress, alert EENT: PERRL/EOMI, normal ENT inspection Neck: non-tender, normal alignment, supple Cardiovascular: normal peripheral pulses, normal rate, regular rhythm Respiratory/Chest: chest wall non-tender, lungs clear, normal breath sounds Abdomen: normal bowel sounds, non tender, soft Skin: normal pigmentation, warm/dry Oneida Schafer N.P. Aug 08, 2017 23:02
[2017-08-09] VITALS: BP 144/75
[2017-08-09 04:00] VITALS: BP 136/76
[2017-08-09] MEDS: NovoLOG Insulin Flexpen SUBQ SCH ×2 (06:30→11:30)
[2017-08-09 07:55] VITALS: BP 127/68
[2017-08-09] MEDS: Docusate 100mg cap ORAL SCH ×2 (09:00→10:17)
[2017-08-09] MEDS: Heparin 5000 units/ml inj SUBQ SCH (09:00)
[2017-08-09] MEDS: Timolol 0.5% Op Soln 2.5ml BOTH EYES SCH (10:15)
[2017-08-09] MEDS: Lisinopril 20mg tab ORAL SCH (10:17)
[2017-08-09] MEDS: Aspirin Baby 81mg ORAL SCH (10:17)
[2017-08-09 12:00] VITALS: BP 131/73
--- NOTE | 2017-08-09 12:33 | Cardiac Electrophysiology PN ---
Assessment/Plan Assessment/Plan 1. Atypical chest pain. His EKG is completely normal and is already ruled out for myocardial infarction. Had nuclear stress test that showed no ischemia. Echocardiogram EF 65% Continue the patient on aspirin and Lipitor. 2. Hypertension. Increase lisinopril to 40 mg daily. DC low dose Norvasc 3. Hyperlipidemia, on Lipitor. 4. History of cerebrovascular accident with left-sided weakness. ANNABEL RN OK to DC from cardiology perspective Subjective Subjective No chest pain or SOB.Stress test yesterday was nonischemic Objective Last 24 Hour Vital Signs Date Time Temp Pulse Resp B/P (MAP) Pulse Ox O2 Delivery O2 Flow Rate FiO2 08/09/17 10:17 127/68 08/09/17 08:00 79 08/09/17 07:55 96.6 76 18 127/68 96 96.6 08/09/17 04:00 97.9 77 20 136/76 97 Room Air 97.9 08/09/17 04:00 72 08/09/17 00:00 67 08/09/17 00:00 98.1 72 20 144/75 98 Room Air 98.1 08/08/17 20:32 69 119/59 08/08/17 20:00 97.3 75 20 127/66 97 Room Air 97.3 08/08/17 20:00 71 08/08/17 16:00 73 08/08/17 16:00 97.9 73 18 133/69 96 Room Air 97.9 Intake and Output 08/08/17 08/09/17 19:00 07:00 Intake Total 240 ml Balance 240 ml Intake Oral 240 ml # Voids 2 6 # Bowel Movements 1 1 Objective HEAD AND NECK: No JVD or carotid bruits. LUNGS: Clear. CARDIOVASCULAR: Regular S1 and S2 with no gallop or murmurs. ABDOMEN: Soft and nontender. EXTREMITIES: No pitting edema. NEUROLOGIC: He has left-sided weakness. Anders Danielson MD Aug 09, 2017 12:33
[2017-08-09] MEDS ORDERED: LISINOPRIL20 MG ORAL (15:10)
[2017-08-09] MEDS ORDERED: ASPIRIN81 MG ORAL (15:10)
[2017-08-10] MEDS ORDERED: Lisinopril 20mg tab ORAL SCH (09:00)
--- NOTE | 2017-08-11 00:33 | Discharge Summary ---
Discharge Summary Hospital Course Date of Admission Aug 06, 2017 at 16:27 Date of Discharge Aug 09, 2017 at 16:15 Admitting Diagnosis ACUTE CORONARY SYNDROME JOHN [facility] is a 86 year old male who was admitted on Aug 06, 2017 at 16:27 for Acute Coronary Syndrome 86 y/o male with a PMH of DM, HTN, and CVA presented with chest pain since this morning. Patient states that chest pain started at 5am this morning that was left sided radiating to the left shoulder and left rib area. Patient states that it lasted for 5 minutes with no associated nausea, vomiting, or sob. In the ER, patient was given ASA 325mg x 1. EKG showed NSR and trops x 3 were negative. CXR was also negative. Patient was transferred to tele and further monitored. Denies fevers, chills, abdominal pain, flank pain, dysuria. Currently also denies chest pain or shortness of breath. Consultations Cardiology, Dr. kwon Hospital Course Patient was admitted for chest pain to med-surg [facility]. Cardiology consultation was requested. Patient was started on DVT ppx. His home meds including his BP meds, statin, and ASA were continued but metformin was held. EKG was NSR and troponins x 3 were negative. ECHO showed 65% EF with mild aortic stenosis, mild to moderate mitral regurg, mild LV diastolic dysfunction, and mild tricuspid regurg. Other labwork was also done including A1c 6.7, LDL 38, HDL 46, and TG 32. Nuclear lexiscan stress test was also done, which showed clean coronaries and no ischemia. Patient's chest pain resolved throughout hospital course and patient was stable to be discharged home. Discharge Medications New Medications: Aspirin* (Aspirin*) 81 Mg Tab.chew 81 MG ORAL DAILY for 30 Days, #30 TAB Lisinopril (Lisinopril*) 20 Mg Tablet 40 MG ORAL DAILY for 30 Days, #30 TAB Continued Medications: Atorvastatin Calcium* (Atorvastatin Calcium*) 40 Mg Tablet 40 MG ORAL BEDTIME, TAB (This prescription has been renewed) Bimatoprost (Lumigan) 2.5 Ml Drops 1 DROP BOTH EYES DAILY, #2.5 ML 0 Refills (This prescription has been renewed) Metformin HCl (Metformin HCl ER) 500 Mg [id number] 500 MG PO BID, TAB (This prescription has been renewed) Timolol (Betimol) 5 Ml Drops 2.5 ML OP BID, ML (This prescription has been renewed) Discontinued Medications: Amlodipine Besylate* (Amlodipine Besylate*) 2.5 Mg Tablet 2.5 MG ORAL BEDTIME, TAB Lisinopril* (Lisinopril*) 30 Mg Tablet 30 MG ORAL DAILY, TAB Discharge Condition Upon Discharge: stable Discharge Disposition Patient was discharged to Home with Home Health(06) Discharge Diagnoses: (1) HTN (hypertension) (2) Hypomagnesemia (3) Chest pain (4) HLD (hyperlipidemia) (5) Type 2 diabetes mellitus (6) H/O: CVA (cerebrovascular accident) Oneida Schafer N.P. Aug 11, 2017 00:33
--- NOTE | 2017-08-11 08:30 | Cardiology Report ---
APPROVED REPORT EXAM: Two-dimensional and M-mode echocardiogram with Doppler and color Doppler. INDICATION Chest Pain M-Mode DIMENSIONS IVSd1.2 (0.7-1.1cm)Left Atrium (MM)2.5 (1.6-4.0cm) LVDd3.4 (3.5-5.6cm)Aortic Root2.9 (2.0-3.7cm) PWd1.1 (0.7-1.1cm)Aortic Cusp Exc.1.4 (1.5-2.0cm) LVDs2.3 (2.5-4.0cm) PWs1.5 cm Technically difficult study due to poor acoustical windows. Normal left ventricular chamber size, systolic function and wall motion to extent visualized. Left ventricular ejection fraction estimated to be 65 %. Study quality precludes accurate assessment of regional wall motion. Mild left ventricular hypertrophy. No evidence of pericardial effusion. All other cardiac chamber sizes are within normal limits. Focal aortic valve sclerosis with adequate cusp excursion. Aortic valve calcification with decreased cusp excursion c/w mild aortic stenosis. Thickened mitral valve leaflets with normal excursion. Mitral annulus and aortic root calcification. Pulmonic valve not well visualized. Normal tricuspid valve structure. IVC at normal size with physiologic collapse. A color flow and spectral Doppler study was performed and revealed: Mild to moderate aortic regurgitation. Peak aortic valve gradient of 20 mm Hg and a mean of 10 mmHg. Aortic valve area 1.8 cm2 calculated by continuity equation suggestive of mild aortic stenosis. Mild to moderate mitral regurgitation. Mitral diastolic velocities suggest reduced left ventricular relaxation c/w mild LV diastolic dysfunction (Grade I). Mild tricuspid regurgitation. Tricuspid systolic velocities suggests peak right ventricular systolic pressure of 40 mmHg, consistent with mild pulmonary hypertension.
== END 2017-08-09 16:15 | disposition home health service (06) | DRG 203 ==
LOC: EMR 16:17 → OBSVTOIN 16:27 → INTOOBSV 16:27 → 2E 16:27 → EDBEDREQ 17:08
DX: R07.89 Other chest pain (principal); I69.354 Hemiplegia and hemiparesis following cerebral infarction affecting left non-dominant side; E11.9 Type 2 diabetes mellitus without complications; E83.42 Hypomagnesemia; I10 Essential (primary) hypertension; E78.5 Hyperlipidemia, unspecified; I35.0 Nonrheumatic aortic (valve) stenosis; I34.0 Nonrheumatic mitral (valve) insufficiency; I36.1 Nonrheumatic tricuspid (valve) insufficiency
CPT/HCPCS: 36415; 71045; 78452; 80048; 80053; 80061; 82550; 82553; 82962; 83036; 83735; 83880; 84443; 84484; 85025; 93005; 93017; 93306; 99285; J1815

== ENCOUNTER 2018-02-10 09:42 | Emergency (ER) | payer MEDICAID ==
[~2018-02-10] VITALS: Ht 167.6 cm; Wt 63.5 kg
[~2018-02-10 09:42] MED LIST: AMLODIPINE BES2.5 MG ORAL; ASPIRIN81 MG ORAL; ATORVASTATIN CA40 MG ORAL; BETIMOL5 M2 OP; LISINOPRIL20 MG ORAL; LISINOPRIL30 MG ORAL; LUMIGAN2.5 ML BOTH EYES; METFORMIN HCL500 M5 PO
[2018-02-10 10:18] VITALS: BP 154/79
--- NOTE | 2018-02-10 10:28 | Emergency Room Report ---
History of Present Illness General Chief Complaint: Neck Pain Source: Patient, Family Member, Medical Record Present Illness HPI Patient presents with complaints of left-sided neck pain There was trauma associated about one week ago patient reported missing a step Denies any fall or acute direct trauma to the area Several days now after the initial trauma patient has left-sided neck pain However he also complains of pain to the jaw Denies any chest pain denies any shortness of breath denies any vomiting Pain sounds to be fairly consistently bear Denies any change with movement or position necessarily Denies any focal weakness denies any neuropathy Allergies: Coded Allergies: No Known Allergies (Unverified , 02/10/18) Patient History Past Medical History: see triage record Pertinent Family History: none Reviewed Nursing Documentation: PMH: Agreed; PSxH: Agreed Nursing Documentation-PMH Past Medical History: No History, Except For Hx Hypertension: Yes Hx Diabetes: Yes Hx Cerebrovascular Accident: Yes - 2015 Review of Systems All Other Systems: negative except mentioned in HPI Physical Exam Vital Signs Date Time Temp Pulse Resp B/P (MAP) Pulse Ox O2 Delivery O2 Flow Rate FiO2 02/10/18 09:46 98.4 76 16 154/79 94 Room Air 98.4 Sp02 EP Interpretation: reviewed, normal General Appearance: mild distress - In pain Head: normocephalic, atraumatic Eyes: bilateral eye PERRL, bilateral eye EOMI ENT: hearing grossly normal, normal pharynx Neck: other - No obvious reproducible discomfort to the midline C-spine, patient holds and is pointing to the junction just at the left trapezius and the neck area, some in the mid SCM region Respiratory: chest non-tender, lungs clear Cardiovascular #1: regular rate, rhythm Gastrointestinal: non tender, soft Genitourinary: no CVA tenderness Musculoskeletal: other - As above in the left neck region Neurologic: alert, oriented x3, responsive, lift 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 III-XII nml as tested Skin: normal color, no rash Lymphatic: no adenopathy Medical Decision Making Diagnostic Impression: Primary Impression: temporal styloid fracture Additional Impression: Neck pain ER Course Patient is a fairly complex patient with multiple differential to consideration including but not limited to cardiac cardiopulmonary and vascular emergencies Please note that initially there was some mechanical component to the patient's discomfort Given his risk factors and neck pain referred pathology is considered and therefore the cardiac workup CT imaging however does show evidence of foot appears to be possible left-sided temporal styloid fracture which is fairly consistent with the patient's discomfort Other workup is fairly benign patient's family is given a copy of the imaging Provided discussion regarding the likely fracture and the need for close follow- up they do understand that And patient is discharged in stable condition Labs Test 02/10/18 10:30 White Blood Count 4.8 K/UL (4.8-10.8) Red Blood Count 4.41 M/UL (4.70-6.10) Hemoglobin 13.7 G/DL (14.2-18.0) Hematocrit 39.1 % (42.0-52.0) Mean Corpuscular Volume 89 FL (80-99) Mean Corpuscular Hemoglobin 31.1 PG (27.0-31.0) Mean Corpuscular Hemoglobin Concent 35.0 G/DL (32.0-36.0) Red Cell Distribution Width 10.8 % (11.6-14.8) Platelet Count 253 K/UL (150-450) Mean Platelet Volume 6.7 FL (6.5-10.1) Neutrophils (%) (Auto) 46.1 % (45.0-75.0) Lymphocytes (%) (Auto) 43.5 % (20.0-45.0) Monocytes (%) (Auto) 5.1 % (1.0-10.0) Eosinophils (%) (Auto) 3.3 % (0.0-3.0) Basophils (%) (Auto) 2.0 % (0.0-2.0) Sodium Level 140 MMOL/L (136-145) Potassium Level 3.7 MMOL/L (3.5-5.1) Chloride Level 106 MMOL/L (98-107) Carbon Dioxide Level 27 MMOL/L (21-32) Anion Gap 7 mmol/L (5-15) Blood Urea Nitrogen 15 mg/dL (7-18) Creatinine 1.0 MG/DL (0.55-1.30) Estimat Glomerular Filtration Rate mL/min (>60) Glucose Level 169 MG/DL (74-106) Calcium Level 9.0 MG/DL (8.5-10.1) Total Bilirubin 0.6 MG/DL (0.2-1.0) Aspartate Amino Transf (AST/SGOT) 14 U/L (15-37) Alanine Aminotransferase (ALT/SGPT) 20 U/L (12-78) Alkaline Phosphatase 86 U/L (46-116) Total Creatine Kinase 31 U/L (26-308) Creatine Kinase MB < 0.5 NG/ML (0.0-3.6) Creatine Kinase MB Relative Index 1.6 Troponin I 0.005 ng/mL (0.000-0.056) Total Protein 7.4 G/DL (6.4-8.2) Albumin 3.4 G/DL (3.4-5.0) Globulin 4.0 g/dL Albumin/Globulin Ratio 0.9 (1.0-2.7) Rhythm Strip Diag. Results EP Interpretation: yes Rate: 77 Rhythm: NSR, no PVC's, no ectopy Chest X-Ray Diagnostic Results Chest X-Ray Diagnostic Results : Chest X-Ray Ordered: Yes # of Views/Limited/Complete: 1 View Indication: Chest Pain EP Interpretation: Yes Interpretation: no consolidation, no effusion, no pneumothorax Impression: No acute disease Electronically Signed by: Janie Samuels DO CT/MRI/US Diagnostic Results CT/MRI/US Diagnostic Results : Impression ct c spine:Impression: No acute cervical trauma Possible fracture versus developmental anomaly of the base of the left temporal styloid process. Correlate with clinical symptoms Extensive degenerative changes, as detailed on a level by level basis above. Note ankylosis of multiple discs and the right C5-6 facet. This is most likely acquired secondary to the degenerative changes. This could also be postsurgical, although no surgical hardware is visualized. Correlate with surgical history. 1 cm right thyroid nodule. No further follow-up necessary. 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 Last Vital Signs Date Time Temp Pulse Resp B/P (MAP) Pulse Ox O2 Delivery O2 Flow Rate FiO2 02/10/18 10:18 98.4 16 154/79 94 Room Air 98.4 02/10/18 09:46 76 Status: improved Disposition: HOME, SELF-CARE Condition: Improved Scripts Methocarbamol* (ROBAXIN-750*) 750 Mg Tablet 750 MG PO TID, #21 TAB 0 Refills Prov: Janie Samuels DO 02/10/18 Acetaminophen (Tylenol) 325 Mg Tablet 325 MG ORAL Q6H PRN for Prn Pain/Headache/Temp > 101, #20 TAB 0 Refills Prov: Janie Samuels DO 02/10/18 Referrals: NOT CHOSEN IPA/MD,REFERRING (PCP) Additional Instructions: Patient is provided with the discharge instructions notified to follow up with primary doctor in the next 2-3 days otherwise return to the er with any worsening symptoms. Please note that this report is being documented using DRAGON technology. This can lead to erroneous entry secondary to incorrect interpretation by the dictating instrument. Janie Samuels DO Feb 10, 2018 10:28
[2018-02-10] MEDS ORDERED: Morphine Sulfate 2mg/ml Inj IVP ONE (10:30)
[2018-02-10] MEDS ORDERED: Ketorolac 30mg Inj IV ONE (10:30)
--- NOTE | 2018-02-10 10:45 | Diagnostic Imaging Report ---
Indication: Sharp neck pain status post fall after missing a step 2 weeks ago Technique: Spiral acquisitions obtained through the cervical spine. No IV contrast utilized. Multiplanar reconstructions were generated. Total dose length product 305.01 mGycm. CTDIvol(s) 14.12 mGy. Dose reduction achieved using automated exposure control. Comparison: none Findings: Coronal and sagittal images demonstrate an oblique lucency and a step-off at the base of the left temporal lobe styloid process. There is reversal of the normal cervical lordosis. There is mild anterior offset of C7 on T1. Bony alignment is otherwise normal. No acute fractures. No prevertebral soft tissue swelling. There is narrowing of the anterior atlantoaxial joint, presumably degenerative. At C2-3, no significant disc bulge or protrusion, spinal stenosis, or neural foraminal stenosis. At C3-4, there is ankylosis of the disc. There is severe facet arthrosis of the left facet. Posterior osteophytes and short pedicles result in mild narrowing the spinal canal, minimum AP dimension 9 mm. There is moderate neural foraminal stenosis bilaterally. At C4-5, there is severe degenerative disc narrowing. There is at least moderate bilateral facet arthrosis. Posterior osteophytes main treated slightly upon the lateral recesses, although do not narrow the spinal canal significant delay, no significant disc bulge or protrusion. There is moderate to severe neural foraminal stenosis bilaterally, degenerative facet and uncinate hypertrophy. At C5-6, there is complete ankylosis of the disc. There is also ankylosis of the right facet. There is considerable facet arthrosis of the left facet. There is moderate right and mild left neural foraminal stenosis. At C6-7, there is severe degenerative disc narrowing and endplate irregularity. There is moderate to severe bilateral neural foraminal stenosis. No significant disc bulge or protrusion or spinal stenosis. At C7-T1,, there is mild to moderate degenerative disc narrowing. There is mild bilateral neural foraminal stenosis. No significant disc bulge or protrusion or spinal stenosis. There is a ill-defined 1 cm nodule in the right thyroid lobe. The left thyroid lobe is markedly atrophic although a small portion appears to be present. The upper aerodigestive tract is unremarkable. Impression: No acute cervical trauma Possible fracture versus developmental anomaly of the base of the left temporal styloid process. Correlate with clinical symptoms Extensive degenerative changes, as detailed on a level by level basis above. Note ankylosis of multiple discs and the right C5-6 facet. This is most likely acquired secondary to the degenerative changes. This could also be postsurgical, although no surgical hardware is visualized. Correlate with surgical history. 1 cm right thyroid nodule. No further follow-up necessary. 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
[2018-02-10 10:53] LABS: EOSINOPHILS % (AUTO) 3.3 % (0.0-3.0); HEMATOCRIT 39.1 % (42.0-52.0); HEMOGLOBIN 13.7 G/DL (14.2-18.0); LYMPHOCYTES % (AUTO) 43.5 % (20.0-45.0); MEAN CORPUSCULAR VOLUME 89 FL (80-99); MONOCYTES % (AUTO) 5.1 % (1.0-10.0); NEUTROPHILS % (AUTO) 46.1 % (45.0-75.0); PLATELET COUNT 253 K/UL (150-450); RED BLOOD COUNT 4.41 M/UL (4.70-6.10); RED CELL DISTRIBUTION WIDTH 10.8 % (11.6-14.8); WHITE BLOOD COUNT 4.8 K/UL (4.8-10.8)
[2018-02-10 11:02] LABS: ANION GAP 7 mmol/L (5-15); BLOOD UREA NITROGEN 15 mg/dL (7-18); CARBON DIOXIDE 27 MMOL/L (21-32); CHLORIDE 106 MMOL/L (98-107); POTASSIUM 3.7 MMOL/L (3.5-5.1); SODIUM 140 MMOL/L (136-145)
[2018-02-10 11:17] LABS: ALANINE AMINOTRANSFERASE 20 U/L (12-78); ALBUMIN 3.4 G/DL (3.4-5.0); ALBUMIN/GLOBULIN RATIO 0.9 (1.0-2.7); ALKALINE PHOSPHATASE 86 U/L (46-116); ASPARTATE AMINO TRANSFERASE 14 U/L (15-37); BILIRUBIN,TOTAL 0.6 MG/DL (0.2-1.0); CKMB < 0.5 NG/ML (0.0-3.6); CREATINE KINASE 31 U/L (26-308)
--- NOTE | 2018-02-10 11:55 | Diagnostic Imaging Report ---
Indication: Chest pain Technique: One view of the chest Comparison: For 03/17/2018 Findings: Atelectatic changes are seen at both lung bases. The heart is upper limits normal in size. The aorta is tortuous. Upper mediastinum is unremarkable. No significant interim change Impression: No acute process.
[2018-02-10 12:37] VITALS: BP 144/70
[2018-02-10] MEDS ORDERED: TYLENOL325 MG ORAL (13:20)
[2018-02-10] MEDS ORDERED: ROBAXIN-750750 MG PO (13:21)
[2018-02-10 14:02] VITALS: BP 142/75
[2018-02-10 14:03] VITALS: BP 142/75
--- NOTE | 2018-02-11 16:13 | Cardiology Report ---
APPROVED REPORT EKG Measurement Heart [id number] Normal sinus rhythm Normal ECG
== END 2018-02-10 14:05 | disposition home or self-care (01) ==
LOC: EMR 10:20
DX: S02.19XA Other fracture of base of skull, initial encounter for closed fracture (principal); X58.XXXA Exposure to other specified factors, initial encounter; Y92.9 Unspecified place or not applicable; M50.321 Other cervical disc degeneration at C4-C5 level; I10 Essential (primary) hypertension; E11.9 Type 2 diabetes mellitus without complications; Z86.73 Personal history of transient ischemic attack (TIA), and cerebral infarction without residual deficits
CPT/HCPCS: 36415; 71045; 72125; 80053; 82550; 82553; 84484; 85025; 93005; 96374; 96375; 99284; J1885; J2270

== ENCOUNTER 2018-10-02 19:51 | Emergency (ER) | payer MEDICAID ==
[~2018-10-02] VITALS: Ht 152.4 cm; Wt 60.8 kg
[~2018-10-02 19:51] MED LIST changes: +ROBAXIN-750750 MG PO; +TYLENOL325 MG ORAL
--- NOTE | 2018-10-02 20:14 | NUR ---
ED Nurse Note: Patient reports pain atop his head and bilateral lower leg pain and numbness.
[2018-10-02 20:15] VITALS: BP 138/82
[2018-10-02] MEDS ORDERED: Acetaminophen 500mg (ES) tab ORAL ONE (20:30)
--- NOTE | 2018-10-02 20:30 | NUR ---
ED Nurse Note: Patient went down to CT.
[2018-10-02 20:35] LABS: BASOPHILS % (AUTO) 1.5 % (0.0-2.0); EOSINOPHILS % (AUTO) 3.1 % (0.0-3.0); HEMOGLOBIN 12.4 G/DL (14.2-18.0); LYMPHOCYTES % (AUTO) 32.9 % (20.0-45.0); MEAN CORPUSCULAR VOLUME 88 FL (80-99); MONOCYTES % (AUTO) 13.4 % (1.0-10.0); NEUTROPHILS % (AUTO) 49.1 % (45.0-75.0); PLATELET COUNT 261 K/UL (150-450); RED CELL DISTRIBUTION WIDTH 11.7 % (11.6-14.8); WHITE BLOOD COUNT 6.4 K/UL (4.8-10.8)
--- NOTE | 2018-10-02 20:50 | NUR ---
ED Nurse Note: Patient returned from CT.
[2018-10-02 20:55] LABS: ANION GAP 8 mmol/L (5-15); BLOOD UREA NITROGEN 19 mg/dL (7-18); CALCIUM 9.4 MG/DL (8.5-10.1); CARBON DIOXIDE 27 MMOL/L (21-32); CHLORIDE 105 MMOL/L (98-107); CREATININE 1.3 MG/DL (0.55-1.30); SODIUM 140 MMOL/L (136-145)
[2018-10-02 21:05] LABS: ALANINE AMINOTRANSFERASE 25 U/L (12-78); ALBUMIN 3.6 G/DL (3.4-5.0); ALBUMIN/GLOBULIN RATIO 0.9 (1.0-2.7); ALKALINE PHOSPHATASE 90 U/L (46-116); ASPARTATE AMINO TRANSFERASE 15 U/L (15-37); BILIRUBIN,TOTAL 0.4 MG/DL (0.2-1.0); CREATINE KINASE 27 U/L (26-308)
--- NOTE | 2018-10-02 21:13 | Diagnostic Imaging Report ---
EXAM: CT Head Without Intravenous Contrast CLINICAL HISTORY: H/A TECHNIQUE: Axial computed tomography images of the head/brain without intravenous contrast. CTDI is 70.38 mGy and DLP is 1404.02 mGy-cm. One or more of the following dose reduction techniques were used: automated exposure control, adjustment of the mA and/or kV according to patient size, use of iterative reconstruction technique. COMPARISON: None FINDINGS: Brain: No acute infarct or hemorrhage identified. No extra-axial fluid collection. No mass effect or midline shift. Scattered areas of hypoattenuation in the supratentorial white matter likely represent chronic small vessel ischemic changes. 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 Encephalomalacia in the medial left occipital lobe. Remote lacunar infarcts in the basal ganglia, caudate heads, and thalami. Ventricles and sulci: Prominence of the ventricles and sulci is likely secondary to cerebral volume loss. Skull: Normal. No bony lesion or fracture. Subcutaneous tissues: Normal. Sinuses: Probable old fracture deformities of the right maxillary sinus. No air-fluid levels or mucosal thickening. Orbits: Bilateral lens implants. Other: Atherosclerotic calcifications in the intracranial vasculature. IMPRESSION: 1. No acute intracranial abnormality. 2. Chronic small vessel ischemic changes and cerebral volume loss. Scattered remote lacunar infarcts and encephalomalacia in the irma and medial left occipital lobe.
--- NOTE | 2018-10-02 21:27 | Diagnostic Imaging Report ---
EXAM: XR Chest, 1 View CLINICAL HISTORY: H/A TECHNIQUE: Frontal view of the chest. COMPARISON: Chest radiograph on 02/10/2018 FINDINGS: Hardware: None. Lungs/pleura: Bibasilar opacities likely represent atelectasis. No focal consolidation. No pleural effusion or pneumothorax. Heart/mediastinum: Stable mild enlargement of the cardiac silhouette. Atherosclerotic calcifications of the aorta. Soft tissues: Unremarkable. Bones: No acute fracture. Upper abdomen: Normal. IMPRESSION: Bibasilar opacities likely represent atelectasis. No focal consolidation.
--- NOTE | 2018-10-02 21:50 | NUR ---
ED Nurse Note: Patient is resting comfortably, has no complaints of pain and has daughter at bedside.
[2018-10-02 22:10] VITALS: BP 160/69
--- NOTE | 2018-10-02 22:22 | NUR ---
ED Nurse Note: Patient has complaints of feeling cold, extra blankets provided.
--- NOTE | 2018-10-02 22:59 | Emergency Room Report ---
History of Present Illness General Chief Complaint: Headache Source: Patient Present Illness HPI For 3 weeks, the patient has had intermittent severe burning pain in the scalp on top of his head. No rashes, fevers. Poor vision post cataract surgery. Allergies: Coded Allergies: No Known Allergies (Unverified , 02/10/18) Patient History Past Medical History: see triage record Social History: Denies: smoking, alcohol use, drug use Social History Narrative From [employer] for [employer] Reviewed Nursing Documentation: PMH: Agreed; PSxH: Agreed Nursing Documentation-PMH Hx Hypertension: Yes Hx Diabetes: Yes Hx Cerebrovascular Accident: Yes Physical Exam Vital Signs Date Time Temp Pulse Resp B/P (MAP) Pulse Ox O2 Delivery O2 Flow Rate FiO2 10/02/18 19:55 97.9 82 20 138/82 (100) 95 Room Air Eyes: bilateral eye other Medical Decision Making Diagnostic Impression: Primary Impression: Scalp pain Additional Impression: Headache Qualified Codes: R51 - Headache ER Course DDx: shingles (post), referred cervical radiculopathy, CVA, cellulitis, tumor, polymyalgia rheumatica/vasculitis amongst others. Pain better after Tylenol. Laboratory Tests Test 10/02/18 20:25 White Blood Count 6.4 K/UL (4.8-10.8) Red Blood Count 4.00 M/UL (4.70-6.10) L Hemoglobin 12.4 G/DL (14.2-18.0) L Hematocrit 35.0 % (42.0-52.0) L Mean Corpuscular Volume 88 FL (80-99) Mean Corpuscular Hemoglobin 31.0 PG (27.0-31.0) Mean Corpuscular Hemoglobin Concent 35.5 G/DL (32.0-36.0) Red Cell Distribution Width 11.7 % (11.6-14.8) Platelet Count 261 K/UL (150-450) Mean Platelet Volume 5.4 FL (6.5-10.1) L Neutrophils (%) (Auto) 49.1 % (45.0-75.0) Lymphocytes (%) (Auto) 32.9 % (20.0-45.0) Monocytes (%) (Auto) 13.4 % (1.0-10.0) H Eosinophils (%) (Auto) 3.1 % (0.0-3.0) H Basophils (%) (Auto) 1.5 % (0.0-2.0) Erythrocyte Sedimentation Rate 23 MM/HR (0-20) H Prothrombin Time 10.9 SEC (9.30-11.50) Prothrombin Time INR 1.0 (0.9-1.1) PTT 27 SEC (23-33) Sodium Level 140 MMOL/L (136-145) Potassium Level 4.0 MMOL/L (3.5-5.1) Chloride Level 105 MMOL/L (98-107) Carbon Dioxide Level 27 MMOL/L (21-32) Anion Gap 8 mmol/L (5-15) Blood Urea Nitrogen 19 mg/dL (7-18) H Creatinine 1.3 MG/DL (0.55-1.30) Estimate Glomerular Filtration Rate mL/min (>60) Glucose Level 181 MG/DL (74-106) H Calcium Level 9.4 MG/DL (8.5-10.1) Magnesium Level 1.8 MG/DL (1.8-2.4) Total Bilirubin 0.4 MG/DL (0.2-1.0) Aspartate Amino Transferase (AST) 15 U/L (15-37) Alanine Aminotransferase (ALT) 25 U/L (12-78) Alkaline Phosphatase 90 U/L (46-116) Total Creatine Kinase 27 U/L (26-308) Troponin I 0.000 ng/mL (0.000-0.056) Pro-B-Type Natriuretic Peptide 79 pg/mL (0-125) Total Protein 7.5 G/DL (6.4-8.2) Albumin 3.6 G/DL (3.4-5.0) Globulin 3.9 g/dL Albumin/Globulin Ratio 0.9 (1.0-2.7) L Thyroid Stimulating Hormone (TSH) 3.336 uiU/mL (0.358-3.740) EKG Diagnostic Results Rate: normal Rhythm: NSR ST Segments: no acute changes - J point elevation Rhythm Strip Diag. Results EP Interpretation: yes Rhythm: NSR, no PVC's, no ectopy Chest X-Ray Diagnostic Results Chest X-Ray Diagnostic Results : Chest X-Ray Ordered: Yes # of Views/Limited/Complete: 1 View Indication: Other EP Interpretation: Yes Interpretation: no effusion, no pneumothorax, other - atelectasis Impression: Other Electronically Signed by: sana CT/MRI/US Diagnostic Results CT/MRI/US Diagnostic Results : Imaging Test Ordered: head Impression small vessel disease Last Vital Signs Date Time Temp Pulse Resp B/P (MAP) Pulse Ox O2 Delivery O2 Flow Rate FiO2 10/02/18 23:26 97.9 75 15 160/69 99 Room Air Status: improved Disposition: HOME, SELF-CARE Condition: Improved Referrals: [facility],REFERRING (PCP) Mike Kim MD Oct 02, 2018 22:59
--- NOTE | 2018-10-02 23:23 | NUR ---
ED Nurse Note: Patient cleared for discharge, patient's daughter verbalized understanding of discharge instructions. PAtient ID band removed, IV removed. Patient vital signs are within normal range. Patient is A&Ox4, ambulatory with a cane. Patient departed with all personal belongings accompanied by his daughter.
[2018-10-02 23:26] VITALS: BP 160/69
== END 2018-10-02 23:23 | disposition home or self-care (01) ==
LOC: EMR 20:30
DX: R51 Headache (principal); I10 Essential (primary) hypertension; E11.9 Type 2 diabetes mellitus without complications; Z86.73 Personal history of transient ischemic attack (TIA), and cerebral infarction without residual deficits
CPT/HCPCS: 36415; 70450; 71045; 80053; 82550; 83735; 83880; 84443; 84484; 85025; 85610; 85651; 85730; 93005; 99284

== ENCOUNTER 2019-04-14 17:30 | Emergency (ER) | payer MEDICAID ==
[~2019-04-14] VITALS: Ht 172.7 cm; Wt 62.6 kg
[2019-04-14 17:50] VITALS: BP 136/54
--- NOTE | 2019-04-14 17:50 | NUR ---
ED Nurse Note: Patient ambulated into ER with a c/o fever and chills. Patient has a temperature of 100.4. Patient is drowsy and aaox4, on room air. patient placed in gown and on cardiac monitors. Patient lab specimen sent to lab.
--- NOTE | 2019-04-14 18:00 | NUR ---
ED Nurse Note: ERMD at bedside.
[2019-04-14] MEDS ORDERED: Acetaminophen 500mg (ES) tab ORAL ONE (18:15)
--- NOTE | 2019-04-14 18:15 | NUR ---
ED Nurse Note: Xray is at bedside.
[2019-04-14] MEDS ORDERED: AMLODIPINE BESYL5 MG ORAL (18:45)
[2019-04-14 18:50] LABS: APPEARANCE,URINE CLOUDY; BILIRUBIN, URINE NEGATIVE (NEGATIVE); GLUCOSE, URINE (UA) 4+ (NEGATIVE); KETONES,URINE 1+ (NEGATIVE); LEUKOCYTE ESTERASE ,URINE 3+ (NEGATIVE); NITRITE,URINE NEGATIVE (NEGATIVE); PH,URINE 5 (4.5-8.0); PROTEIN,URINE 3+ (NEGATIVE); UROBILINOGEN,URINE NORMAL MG/DL (0.0-1.0)
[2019-04-14 18:58] LABS: COLOR,URINE YELLOW
[2019-04-14 19:01] LABS: HEMATOCRIT 36.5 % (42.0-52.0); HEMOGLOBIN 12.8 G/DL (14.2-18.0); MEAN CORPUSCULAR VOLUME 89 FL (80-99); PLATELET COUNT 244 K/UL (150-450); RED CELL DISTRIBUTION WIDTH 11.8 % (11.6-14.8)
[2019-04-14 19:05] LABS: ANION GAP 13 mmol/L (5-15); BLOOD UREA NITROGEN 16 mg/dL (7-18); CALCIUM 8.9 MG/DL (8.5-10.1); CARBON DIOXIDE 23 MMOL/L (21-32); CHLORIDE 100 MMOL/L (98-107); CREATININE 1.4 MG/DL (0.55-1.30); POTASSIUM 3.1 MMOL/L (3.5-5.1); SODIUM 135 MMOL/L (136-145)
--- NOTE | 2019-04-14 19:10 | NUR ---
HAND-OFF: Report given to CORA Workman.
[2019-04-14 19:13] LABS: WHITE BLOOD COUNT 25.6 K/UL (4.8-10.8)
[2019-04-14 19:16] LABS: ALANINE AMINOTRANSFERASE 18 U/L (12-78); ALBUMIN 3.2 G/DL (3.4-5.0); ALBUMIN/GLOBULIN RATIO 0.7 (1.0-2.7); ALKALINE PHOSPHATASE 87 U/L (46-116); ASPARTATE AMINO TRANSFERASE 13 U/L (15-37)
--- NOTE | 2019-04-14 19:20 | NUR ---
ED Nurse Note: pt care endorsed by CORA Romo. pt does not appear to be in any distress at this time, VSS fluids are running, daughter is at bedside. will continue to monitor pt.
[2019-04-14] MEDS ORDERED: cefTRIAXone 1 GM in NS 55 ML IVPB ONE (19:30)
--- NOTE | 2019-04-14 19:40 | Emergency Room Report ---
History of Present Illness General Chief Complaint: Generalized Weakness Source: Patient, Family Member Present Illness HPI 88-year-old male presents ED for evaluation. Daughter at bedside states patient has been having chills and body aches and frequent urination for the last 4 days. Febrile in triage. Patient states he feels weak. Pain is dull, 7 out of 10, nonradiating. Denies cough. Denies sick contacts or recent travel. Did not receive flu shot this year. No other aggravating relieving factors. Denies any other associated symptoms Allergies: Coded Allergies: No Known Allergies (Unverified , 02/10/18) Patient History Past Medical History: DM, HTN, CVA/TIA Past Surgical History: none Pertinent Family History: none Social History: Denies: smoking, alcohol use, drug use Immunizations: UTD Reviewed Nursing Documentation: PMH: Agreed; PSxH: Agreed Nursing Documentation-PMH Past Medical History: No History, Except For Hx Hypertension: Yes Hx Diabetes: Yes Hx Cerebrovascular Accident: Yes Review of Systems All Other Systems: negative except mentioned in HPI Physical Exam Vital Signs Date Time Temp Pulse Resp B/P (MAP) Pulse Ox O2 Delivery O2 Flow Rate FiO2 04/14/19 17:38 100.9 125 18 117/67 (84) 4 Room Air Sp02 EP Interpretation: reviewed, normal General Appearance: no apparent distress, GCS 15, non-toxic, lethargic, thin Head: normocephalic, atraumatic Eyes: bilateral eye normal inspection, bilateral eye PERRL ENT: hearing grossly normal, normal pharynx, no angioedema, normal voice Neck: full range of motion, supple/symm/no masses Respiratory: chest non-tender, lungs clear, normal breath sounds, speaking full sentences Cardiovascular #1: no edema, tachycardia Cardiovascular #2: 2+ carotid (R), 2+ carotid (L), 2+ radial (R), 2+ radial (L) , 2+ dorsalis pedis (R), 2+ dorsalis pedis (L) Gastrointestinal: normal bowel sounds, non tender, soft, non-distended, no guarding, no rebound Rectal: deferred Genitourinary: normal inspection, no CVA tenderness Musculoskeletal: back normal, normal range of motion, gait/station normal, non- tender Neurologic: alert, motor strength/tone normal, oriented x3, sensory intact, responsive, speech normal Psychiatric: judgement/insight normal, memory normal, mood/affect normal, no suicidal/homicidal ideation Reflexes: 3+ bicep (R), 3+ bicep (L), 3+ tricep (R), 3+ tricep (L), 3+ knee (R) , 3+ knee (L) Skin: other - see nursing skin notes Lymphatic: no adenopathy Medical Decision Making Diagnostic Impression: Primary Impression: Sepsis Qualified Codes: A41.9 - Sepsis, unspecified organism Additional Impressions: UTI (urinary tract infection) Qualified Codes: N39.0 - Urinary tract infection, site not specified Hyperglycemia Episode of generalized weakness ER Course Hospital Course 88-year-old male presenting to ED with generalized weakness, fever, urinary frequency Differential diagnoses include: Pneumonia, UTI, sepsis, dehydration, ND/ unstable angina Clinical course Patient placed on stretcher. On security monitor with tachycardia. After initial history and physical, I ordered labs, IV fluids, EKG, chest x-ray, blood cultures, UA. given tylenol in ED Labs - Glucose 290 no evidence of DKA, marked leukocytosis, lactic > 3, UA grossly positive for UTI flu swab negative CXR - no acute process EKG - sinus tachycardia no acute ischemic changes interpreted by me Abx given. 30 cc/kg fluid bolus. because of insurance patient will be transferred I feel this is a highly complex case requiring extensive working including EKG/ Rhythm strip, Xray/CT/US, Blood/urine lab work, repeat exams while in ED, and administration of strong opiates/narcotics for pain control, admission to hospital or close patient follow up. Diagnosis - sepsis, hyperglycemia, UTI, generalized weakness transferred in serious condition Labs Test 04/14/19 18:10 04/14/19 18:25 Urine Color Yellow Urine Appearance Cloudy Urine pH 5 (4.5-8.0) Urine Specific [place] 1.015 (1.005-1.035) Urine Protein 3+ (NEGATIVE) Urine Glucose (UA) 4+ (NEGATIVE) Urine Ketones 1+ (NEGATIVE) Urine Blood 5+ (NEGATIVE) Urine Nitrite Negative (NEGATIVE) Urine Bilirubin Negative (NEGATIVE) Urine Urobilinogen Normal MG/DL (0.0-1.0) Urine Leukocyte Esterase 3+ (NEGATIVE) Urine RBC 20-30 /HPF (0 - 0) Urine WBC Tntc /HPF (0 - 0) Urine Squamous Epithelial Cells Occasional /LPF Urine Bacteria Moderate /HPF (NONE) White Blood Count 25.6 K/UL (4.8-10.8) Red Blood Count 4.10 M/UL (4.70-6.10) Hemoglobin 12.8 G/DL (14.2-18.0) Hematocrit 36.5 % (42.0-52.0) Mean Corpuscular Volume 89 FL (80-99) Mean Corpuscular Hemoglobin 31.3 PG (27.0-31.0) Mean Corpuscular Hemoglobin Concent 35.2 G/DL (32.0-36.0) Red Cell Distribution Width 11.8 % (11.6-14.8) Platelet Count 244 K/UL (150-450) Mean Platelet Volume 6.7 FL (6.5-10.1) Neutrophils (%) (Auto) % (45.0-75.0) Lymphocytes (%) (Auto) % (20.0-45.0) Monocytes (%) (Auto) % (1.0-10.0) Eosinophils (%) (Auto) % (0.0-3.0) Basophils (%) (Auto) % (0.0-2.0) Sodium Level 135 MMOL/L (136-145) Potassium Level 3.1 MMOL/L (3.5-5.1) Chloride Level 100 MMOL/L (98-107) Carbon Dioxide Level 23 MMOL/L (21-32) Anion Gap 13 mmol/L (5-15) Blood Urea Nitrogen 16 mg/dL (7-18) Creatinine 1.4 MG/DL (0.55-1.30) Estimat Glomerular Filtration Rate mL/min (>60) Glucose Level 293 MG/DL (74-106) Lactic Acid Level 3.40 mmol/L (0.4-2.0) Calcium Level 8.9 MG/DL (8.5-10.1) EKG Diagnostic Results Rate: tachycardiac Rhythm: NSR ST Segments: no acute changes ASA given to the pt in ED: No Rhythm Strip Diag. Results EP Interpretation: yes Rhythm: NSR, no PVC's, no ectopy Chest X-Ray Diagnostic Results Chest X-Ray Diagnostic Results : Chest X-Ray Ordered: Yes # of Views/Limited/Complete: 1 View Indication: Other EP Interpretation: Yes Interpretation: no consolidation, no effusion, no pneumothorax, no acute cardiopulmonary disease Impression: No acute disease Electronically Signed by: Electronically signed by Miguel Johnson MD Last Vital Signs Date Time Temp Pulse Resp B/P (MAP) Pulse Ox O2 Delivery O2 Flow Rate FiO2 04/14/19 17:50 116 24 Room Air 04/14/19 17:50 100.4 136/54 98 Status: improved Disposition: XFER SHT-TRM HOSP Condition: Serious Referrals: NON PHYSICIAN (PCP) Miguel Johnson MD Apr 14, 2019 19:39
[2019-04-14 20:21] VITALS: BP 124/74
--- NOTE | 2019-04-14 21:07 | NUR ---
ED Nurse Note: pt's son is currently at bedside, he does not appear to be in any distress at this time. VSS, breathing is even and non-labored. ANGELIC spoke with pt's son about current plan of care, he verablized undestanding. will continue to closely monitor pt.
--- NOTE | 2019-04-14 23:20 | NUR ---
ED Nurse Note: Called and gave report to CORA Asif [facility]. [id number] is here to transfer pt. pt does not appear to be in any distress at this time, VSS. stable enough for transfer Madan
[2019-04-14 23:25] VITALS: BP 136/48
--- NOTE | 2019-04-15 19:09 | Diagnostic Imaging Report ---
Indication: Cough Technique: One view of the chest Comparison: 10/02/2018 Findings: Inspiration is suboptimal. There are bilateral basilar atelectatic changes. Lungs and pleural spaces are otherwise clear. Aorta is calcified. Findings are unchanged Impression: No acute process
== END 2019-04-14 23:25 | disposition short-term general hospital (02) ==
LOC: EMR 18:00 → EDBEDREQSVC 19:20 → EMR 23:25
DX: A41.9 Sepsis, unspecified organism (principal); N39.0 Urinary tract infection, site not specified; E11.65 Type 2 diabetes mellitus with hyperglycemia; R53.1 Weakness; Z86.73 Personal history of transient ischemic attack (TIA), and cerebral infarction without residual deficits; D72.829 Elevated white blood cell count, unspecified; R00.0 Tachycardia, unspecified
CPT/HCPCS: 36415; 71045; 80053; 81003; 83605; 83880; 85007; 85025; 86710; 87040; 87086; 87181; 93005; 96361; 96365; J0696; J7030; Z7502; 99284